=== PATIENT | female | born 1945 | race Caucasian/White ===

== ENCOUNTER 2019-04-29 17:28 | Emergency (ER) | payer OTHER ==
[~2019-04-29] VITALS: Ht 160 cm; Wt 59.0 kg
[2019-04-29] MEDS ORDERED: MORPHINE SULFATE 4 MG/ML CPJ (NOT FOR IM USE) IV STA (18:19)
[2019-04-29] MEDS ORDERED: SODIUM CHLORIDE 0.9% 1,000 ML IV ONE (18:19)
[2019-04-29] MEDS ORDERED: ONDANSETRON HCL 4MG/2ML INJ IV STA (18:19)
[2019-04-29 18:28] LABS: BASOPHILS % 0.5 % (0.0-2.0); EOSINOPHILS % 2.6 % (0.0-5.0); HEMATOCRIT. 37.9 % (36.0-48.0); LYMPHOCYTES % 32.3 % (20.0-50.0); MEAN CORPUSCULAR HEMOGLOBIN 32.2 pg (28.0-32.0); MEAN CORPUSCULAR VOLUME 94.1 fL (81.0-99.0); MEAN PLATELET VOLUME 8.8 fl (7.4-10.4); MONOCYTES % 8.9 % (2.0-8.0); NEUTROPHILS % 55.7 % (40.0-76.0); PLATELET 202 x1000/uL (130-400); RED BLOOD CELL COUNT 4.03 mill/uL (4.2-5.4); RED CELL DISTRIBUTION WIDTH 13.1 % (11.6-14.6)
[2019-04-29 18:31] LABS: CHLORIDE 105 mEq/L (98-107)
[2019-04-29 18:39] LABS: INR 0.9; PARTIAL THROMBOPLASTIN TIME 26.1 sec (23.4-31.0); PROTHROMBIN TIME 10.1 sec (9.6-11.0)
[2019-04-29 21:57] VITALS: BP 142/53
[2019-04-29] MEDS ORDERED: MORPHINE SULFATE 4 MG/ML CPJ (NOT FOR IM USE) IV ONE (22:30)
== END 2019-04-29 22:26 | disposition short-term general hospital (02) ==
LOC: ER 17:28 → CANBEDREQ 23:19
DX: S72.011A Unspecified intracapsular fracture of right femur, initial encounter for closed fracture (principal); I10 Essential (primary) hypertension; Z88.0 Allergy status to penicillin; W19.XXXA Unspecified fall, initial encounter; Y93.89 Activity, other specified; Y92.89 Other specified places as the place of occurrence of the external cause; Y99.8 Other external cause status
CPT/HCPCS: 36415; 71045; 73502; 80053; 83880; 84484; 85025; 85610; 85730; 93005; 96374; 96375; 96376; 99285; J2270; J2405; J7030